=== PATIENT | female | born 1975 | race African-American/Black ===

== ENCOUNTER 2023-09-05 23:23 | Emergency (ER) | payer MEDICAID ==
[~2023-09-05] VITALS: Ht 162.6 cm; Wt 155.0 kg
[~2023-09-05 23:23] MED LIST: AMLO10TA4 PO; OMEP20TA23 PO; POTA-189 PO; VALS1TAB30 PO
[2023-09-05 23:27] VITALS: O2SAT 99
[2023-09-06] MEDS ORDERED: FLUT9.9S16 BOTHNSTRLS (03:22)
[2023-09-06] MEDS ORDERED: AMOX1TAB16 MT (03:22)
[2023-09-06 03:43] VITALS: BP 229/127; PULSE 95; RESP 19; TEMP 98.5
[2023-09-07] MEDS ORDERED: DOXY200T8 MT (01:15)
[2023-09-07] MEDS ORDERED: P50 MT (01:16)
[2023-09-07] MEDS ORDERED: EPIN0.3P3 IM (01:16)
[2023-09-07] MEDS ORDERED: DIPH25CA83 MT (01:16)
== END 2023-09-06 03:45 | disposition home or self-care (01) ==
LOC: ER 23:23
DX: J01.90 Acute sinusitis, unspecified (principal); I10 Essential (primary) hypertension; K21.9 Gastro-esophageal reflux disease without esophagitis; Z79.899 Other long term (current) drug therapy
CPT/HCPCS: 81025; 93005; 99283; 71045; Z7610

== ENCOUNTER 2023-09-06 23:44 | Emergency (ER) | payer MEDICAID ==
[~2023-09-06] VITALS: Ht 162.6 cm; Wt 152.4 kg
[~2023-09-06 23:44] MED LIST changes: +AMOX1TAB16 MT; +FLUT9.9S16 BOTHNSTRLS
[2023-09-07 00:22] VITALS: O2SAT 98
[2023-09-07] MEDS ORDERED: DOXY200T8 MT (01:15)
[2023-09-07] MEDS ORDERED: DIPHENHYDRAMINE 25MG CAPSULE PO ONE (01:15)
[2023-09-07] MEDS ORDERED: PREDNISONE 20MG TABLET PO ONE (01:15)
[2023-09-07] MEDS ORDERED: FAMOTIDINE 20MG TABLET PO ONE (01:15)
[2023-09-07] MEDS ORDERED: P50 MT (01:16)
[2023-09-07] MEDS ORDERED: DIPH25CA83 MT (01:16)
[2023-09-07] MEDS ORDERED: EPIN0.3P3 IM (01:16)
[2023-09-07 01:58] VITALS: BP 156/83; PULSE 101; RESP 18; TEMP 99
== END 2023-09-07 02:02 | disposition home or self-care (01) ==
LOC: ER 23:55
DX: T78.40XA Allergy, unspecified, initial encounter (principal); I10 Essential (primary) hypertension; Z98.890 Other specified postprocedural states; X58.XXXA Exposure to other specified factors, initial encounter
CPT/HCPCS: 99284; Q0163; J7512